=== PATIENT | female | born 1950 | race Caucasian/White ===

== ENCOUNTER 2022-08-21 06:43 | Day surgery (SDC) | payer MEDICARE, BC ==
[~2022-08-21 06:43] MED LIST: Dextrose 5%-0.45% NaCl 1,000 ML IV SCH; Midazolam 1 MG/ML 2 ML SDV ONE; Sodium Chloride 0.9% 10 ML Syringe FLUSH PRN; Sodium Chloride 0.9% 10 ML Syringe FLUSH SCH; fentaNYL 100 MCG/2 ML SDV ONE
[2022-08-21] MEDS ORDERED: fentaNYL 100 MCG/2 ML SDV IV ONE ×3 (06:44→08:22)
[2022-08-21] MEDS ORDERED: Midazolam 1 MG/ML 2 ML SDV IV ONE ×3 (06:44→08:24)
[2022-08-21 09:55] VITALS: BP 136/63; PULSE 51
== END 2022-08-21 10:33 | disposition home or self-care (01) ==
LOC: DL.ENDO 06:43
PROVIDERS: ATTEND Internal Medicine Gastroenterology
DX: K31.89 Other diseases of stomach and duodenum (principal); K31.7 Polyp of stomach and duodenum; K21.9 Gastro-esophageal reflux disease without esophagitis; E78.5 Hyperlipidemia, unspecified; K27.9 Peptic ulcer, site unspecified, unspecified as acute or chronic, without hemorrhage or perforation; I48.0 Paroxysmal atrial fibrillation; Z95.1 Presence of aortocoronary bypass graft; Z88.0 Allergy status to penicillin; Z91.040 Latex allergy status
CPT/HCPCS: 87077; 88305; J2250; J3010; J7042